=== PATIENT | male | born 1930 | race Caucasian/White ===

== ENCOUNTER 2018-08-09 19:36 | Emergency (ER) | payer OTHER ==
[2018-08-09 19:56] VITALS: TEMP 97.3; BMI 25.8
[2018-08-09 21:20] LABS: BASO % 0.5 % (0-2.0); EOS % 4.5 % (0-4.5); HEMATOCRIT 45.5 % (35.4-49); HEMOGLOBIN 15.1 GM/dl (11.7-16.9); INR 2.26 (0.82-1.09); LYMPH % 6.6 % (8-40); MCH 31.8 pg (25.7-33.7); MCHC 33.2 g/dl (32.0-35.9); MEAN CELL VOLUME 95.8 fl (80-96); MEAN PLT VOLUME 9.2 fl (7.5-11.1); MONO % 8.3 % (3.8-10.2); NEUT % 80.1 % (42.8-82.8); PLATELET COUNT 198 K/MM3 (134-434); PROTHROMBIN TIME (PATIENT) 24.9 SEC (10.2-13.0); RBC 4.74 M/mm3 (4.00-5.60); RDW 13.4 % (11.9-15.9); WHITE BLOOD COUNT 7.2 K/mm3 (4.0-10.8)
[2018-08-09 21:24] LABS: ALBUMIN 3.8 g/dl (3.4-5.0); BILIRUBIN,TOTAL 0.7 mg/dl (0.2-1); CALCIUM 9.4 mg/dl (8.5-10); CREATININE 1.2 mg/dl (0.55-1.3); POTASSIUM 3.4 mmol/L (3.5-5.1); TOT PROT 6.6 g/dl (6.4-8.2)
[2018-08-09] MEDS ORDERED: ACETAMINOPHEN 1000 MG/100 ML VIAL (NON FORMULARY) IVPB ONE (21:25)
[2018-08-09] MEDS ORDERED: ACETAMINOPHEN INJECTION 100 ML IVPB ONE (21:33)
[2018-08-09] MEDS ORDERED: PHYTONADIONE 10 MG/1 ML AMP IVPB ONE (21:42)
[2018-08-09] MEDS ORDERED: levETIRAcetam 500 MG/5 ML INJECTION VIAL IVPB ONE ×2 (21:42→21:45)
[2018-08-09] MEDS ORDERED: PHYTONADIONE 10 MG/1 ML AMP ONE (21:45)
[2018-08-09 22:13] VITALS: BP 129/83; PULSE 82
--- NOTE | 2018-08-09 22:24 | PDOC ---
Documentation entered by Mina Toledo SCRIBE, acting as scribe for Lynne Ramirez MD. Lynne Ramirez MD: This documentation has been prepared by the Tre shah Daniel, SCRIBE, under my direction and personally reviewed by me in its entirety. I confirm that the documentation accurately reflects all work, treatment, procedures, and medical decision making performed by me. History of Present Illness - General Chief Complaint: Syncope/Near Syncope Stated Complaint: FELL ON FACE,NO RECOLLECTION Time Seen by Provider: 08/09/18 19:41 History Source: Patient Exam Limitations: No Limitations - History of Present Illness Initial Comments: 08/09/18 21:04 The patient is a 88 year old male with a past medical history of Afib (warfarin ) here today from [facility] brought in by EMS for evaluation s/p fall. The patient reports that he does not remember falling but remembers waking up on the ground. As per EMS the patient fell on his face. Patient currently states that he has a mild frontal headache and neck stiffness. Patient denies lightheadedness. Denies fever, chills. Denies chest pain, shortness of breath. Denies nausea, vomiting, diarrhea, abdominal pain. Allergies: penicillins PCP: Mirian Hartman Past History - Past Medical History Allergies/Adverse Reactions: Allergies Allergy/AdvReac Type Severity Reaction Status Date / Time Penicillins Allergy Verified 08/09/18 19:57 Home Medications: Ambulatory Orders Chlorthalidone 25 mg PO DAILY 08/09/18 Losartan Potassium 50 mg PO DAILY 08/09/18 Potassium Chloride 20 meq PO DAILY 08/09/18 Trazodone HCl 50 mg PO HS 08/09/18 Verapamil HCl 120 mg PO DAILY 08/09/18 Warfarin Na [Coumadin] 2.5 mg PO DAILY 08/09/18 Review of Systems - Review of Systems Able to Perform ROS?: Yes Comments:: 08/09/18 21:04 All systems are reviewed and negative except as noted in the HPI *Physical Exam - Vital Signs Last Vital Signs Temp Pulse Resp BP Pulse Ox 97.3 F L 89 16 132/75 98 08/09/18 19:52 08/09/18 19:52 08/09/18 19:52 08/09/18 19:52 08/09/18 19:52 - Physical Exam Comments: 08/09/18 21:31 GENERAL: Awake, alert, and fully oriented, in no acute distress HEAD: +2x4 cm superficial abrasion to the mid forehead. +non bleeding abrasion along the nasal bridge. EYES: PERRLA, EOMI, sclera anicteric, conjunctiva clear ENT: Auricles normal inspection, hearing grossly normal, nares patent, oropharynx clear without exudates. Moist mucosa NECK: Normal ROM, supple, no lymphadenopathy, JVD, no tenderness, or masses LUNGS: Breath sounds equal, clear to auscultation bilaterally. No wheezes, and no crackles HEART: Regular rate and rhythm, normal S1 and S2, no murmurs, rubs or gallops ABDOMEN: Soft, nontender, normoactive bowel sounds. No guarding, no rebound. No masses EXTREMITIES: Normal range of motion, no edema. No clubbing or cyanosis. No cords, erythema, or tenderness NEUROLOGICAL: Cranial nerves II through XII grossly intact. Normal speech, normal gait SKIN: Warm, Dry, normal turgor, no rashes or lesions noted. ED Treatment Course - LABORATORY CBC & Chemistry Diagram: 08/09/18 20:10 08/09/18 20:10 - ADDITIONAL ORDERS Additional order review: Laboratory Results 08/09/18 08/09/18 08/09/18 20:10 20:10 20:10 PT with INR 24.9 H INR 2.26 H Sodium 137 Potassium 3.4 L Chloride 100 Carbon Dioxide 20 L Anion Gap 17 H BUN 27 H Creatinine 1.2 Est GFR (CKD-EPI)AfAm 62.20 Est GFR (CKD-EPI)NonAf 53.67 Random Glucose 124 H Calcium 9.4 Total Bilirubin 0.7 AST 39 H ALT 23 Alkaline Phosphatase 84 Creatine Kinase 135 Troponin I 0.05 Total Protein 6.6 Albumin 3.8 08/09/18 20:10 RBC 4.74 MCV 95.8 MCHC 33.2 RDW 13.4 MPV 9.2 Neutrophils % 80.1 Lymphocytes % 6.6 L Monocytes % 8.3 Eosinophils % 4.5 Basophils % 0.5 - RADIOLOGY Radiology Studies Ordered: Category Date Time Status HEAD CT WITHOUT CONTRAST [CT] Stat CT Scan 08/09/18 20:51 Completed - Medications Given in the ED: ED Medications Discontinued Medications Generic Name Dose Route Start Last Admin Trade Name Freq PRN Reason Stop Dose Admin Acetaminophen 1,000 mg 08/09/18 21:25 08/09/18 21:36 Ofirmev Injection - IVPB 08/09/18 21:26 1,000 mg ONCE ONE Administration Medical Decision Making - Medical Decision Making 08/09/18 twelve-lead electrocardiogram is performed and interpreted: Atrial fibrillation at 79 bpm; there is left axis deviation . There is occasional PVCs. 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 There is poor R-wave progression. No evidence of acute ST or T-wave abnormalities. There is no previous twelve-lead echocardiogram tracing to compare . As noted above, this 88-year-old man with a history of atrial fibrillation and hypertension presents with a fall in the assisted living facility where he resides. Although he remembers standing up from the dining table, he does not remember what occurred except being on the floor and being helped by people. Witnesses state that the patient had no loss of consciousness and he tripped and fell, impacting his face. There was no seizure activity or incontinence. The patient is complaining of a mild headache; he denies neck pain or any other symptom. Exam as noted Noncontrast head CT interpreted by Dr. Ortega of the radiology staff: notable for thin acute subdural bleed, right temporoparietal lobe. Since neurosurgery evaluation and care is not available at this institution, [facility] transfer center contacted. Case discussed with Dr. Dong from the neurosurgery staff who accepted the case. Patient will be seen in the ED. Because of the presence of life-threatening bleeding in a patient taking warfarin, the patient will receive 10 mg of vitamin K IV as well as 500 mg of Keppra IV. PCC is not immediately available at this institution. INR measured here at 2.26. CBC is normal; BUN 27 and creatinine is 1.2. Potassium is minimally decreased at 3.4 mmol per liter. Troponin 0.05 08/09/18 22:12 Patient received 1 g acetaminophen with resolution of his headache. He has no new complaints and continues to be awake, alert and oriented X 3. 08/09/18 23:05 Vitamin K patient has received 10 mg of vitamin K IV as well as 500 mg of Keppra IV. He continues to be comfortable without new complaints. 08/09/18 23:23 Transfer center recontacted regarding ETA for transport: Patient is becoming frustrated and has threatened to sign out AGAINST MEDICAL ADVICE. ETA estimated to be at 10 minutes according to transfer center. This was communicated to the patient and importance of his evaluation and treatment in light of potentially life-threatening bleeding within his brain reiterated to him 08/09/18 23:51 patient transported in stable condition, alert and oriented 3 *DC/Admit/Observation/Transfer Diagnosis at time of Disposition: Subdural hematoma Atrial fibrillation Qualifiers: Atrial fibrillation type: chronic Qualified Code(s): I48.2 - Chronic atrial fibrillation - Discharge Dispostion Disposition: TRANSFER ACUTE CARE/OTHER HOSP Condition at time of disposition: Guarded - Referrals - Patient Instructions - Post Discharge Activity - Transfer to Acute Care Facility Receiving Facility: [facility].
--- NOTE | 2018-08-10 12:13 | EKG ---
Test Reason : Blood Pressure : / mmHG Vent. Rate : 079 BPM Atrial Rate : 059 BPM P-R Int : 000 ms QRS Dur : 086 ms QT Int : 382 ms P-R-T Axes : 000 -51 098 degrees QTc Int : 438 ms ATRIAL FIBRILLATION WITH PREMATURE VENTRICULAR OR ABERRANTLY CONDUCTED COMPLEXES LEFT AXIS DEVIATION INFERIOR INFARCT , AGE UNDETERMINED ANTEROSEPTAL INFARCT , AGE UNDETERMINED ABNORMAL ECG NO PREVIOUS ECGS AVAILABLE Confirmed by MD Herber, Mina ([id number]) on 08/10/2018 12:12:47 PM Referred By: Confirmed By:Mina Craven MD
== END 2018-08-10 00:15 | disposition short-term general hospital (02) ==
LOC: FER 19:36
PROC: 3E033NZ Introduction of Analgesics, Hypnotics, Sedatives into Peripheral Vein, Percutaneous Approach (ICD-10-PCS; principal; 2018-08-09)
PROC: 3E033GC Introduction of Other Therapeutic Substance into Peripheral Vein, Percutaneous Approach (ICD-10-PCS; 2018-08-09)
DX: S06.5X9A Traumatic subdural hemorrhage with loss of consciousness of unspecified duration, initial encounter (principal); I48.2 Chronic atrial fibrillation; I10 Essential (primary) hypertension; Z79.01 Long term (current) use of anticoagulants; W18.39XA Other fall on same level, initial encounter; Y93.9 Activity, unspecified; Y92.099 Unspecified place in other non-institutional residence as the place of occurrence of the external cause
CPT/HCPCS: 36415; 70450-TC; 80053; 82550; 84484; 85025; 85610; 93005; 96374; 96375; 99282-25; J0131